=== PATIENT | female | born 1995 | race Caucasian/White ===

== ENCOUNTER 2019-09-27 01:43 | Emergency (ER) | payer OTHER ==
[~2019-09-27] VITALS: Ht 170.2 cm; Wt 113.4 kg
[~2019-09-27 01:43] MED LIST: VENTOLIN HFA 1818 GM INH; ZPAK PO
[2019-09-27] MEDS ORDERED: IBUPROFEN25 GM PO (01:53)
[2019-09-27] MEDS ORDERED: NORCO 5-325 TA1 EAC1 PO (02:52)
[2019-09-27 03:22] VITALS: BP 112/69
== END 2019-09-27 03:24 | disposition home or self-care (01) ==
LOC: ER 01:43
DX: S52.502A Unspecified fracture of the lower end of left radius, initial encounter for closed fracture (principal); V89.2XXA Person injured in unspecified motor-vehicle accident, traffic, initial encounter; Y93.I9 Activity, other involving external motion; Y92.488 Other paved roadways as the place of occurrence of the external cause; Y99.8 Other external cause status